=== PATIENT | female | born 1955 | race Caucasian/White ===

== ENCOUNTER 2023-11-18 10:46 | Outpatient (CLI) | payer MEDICARE, SELFPAY ==
--- NOTE | ~2023-11-18 | XR_ITS ---
Supine and upright views of the abdomen Clinical history: Bilateral groin pain Findings: Bowel gas pattern is nonspecific. No evidence for obstruction or free air. No abnormal mass lesion identified. There is a 1.2 cm rounded calcified lesion in the left upper quadrant, indetermin ate. Osseous structures are intact. Impression: 1.2 cm rounded, calcified lesion left upper quadrant, indeterminate. Reviewed, dictated and finalized at location . [employer] Impression: 1.2 cm rounded, calcified lesion left upper quadrant, indeterminate.
--- NOTE | ~2023-11-18 | US_ITS ---
EXAMINATION: US abdomen complete DATE: 11/18/2023 11:22 INDICATION: Abdominal pain TECHNIQUE: Multiple grayscale and Doppler ultrasound images of the abdomen were obtained. COMPARISON: None available FINDINGS: The head and body of the pancreas are normal. The pancreatic tail is obscured by bowel gas. The liver is normal with normal echogenicity and echotexture. No surface nodularity. Normal hepatope carlito flow in the main portal vein. The gallbladder is normal with no abnormal wall thickening, pericho lecystic fluid or stones. The normal common bile duct measures 3 mm. There was no sonographic Escobar sign. The visualized portions of the aorta and inferior vena cava are normal. The spleen measures 8.5 cm. A splenic calcification is noted. The right kidney measures 9.6 x 4.1 x 4 .8 cm. The left kidney measures 9.8 x 5.8 x 5.4 cm. The kidneys demonstrate normal parenchymal echoge nicity. No sonographic correlate is identified in the region of the patient's abdominal pain. There i s no hydronephrosis. IMPRESSION: 1. No sonographic correlate for the patient's symptoms. Reviewed, dictated and finalized at location B. [facility]
== END 2023-11-18 10:47 ==
LOC: MICIMG 10:48
PROVIDERS: PCP Nurse Practitioner; Visit Provider Nurse Practitioner
DX: R10.32 Left lower quadrant pain (principal)
CPT/HCPCS: 74018; 76700

== ENCOUNTER 2025-01-06 07:36 | Outpatient (CLI) | payer MEDICARE, SELFPAY ==
--- NOTE | ~2025-01-06 | US_ITS ---
EXAM: ABDOMEN ULTRASOUND HISTORY: CHRONIC GERD;NAUSEA;INTERMITTENT DIARRHEA;EPIGASTRIC PAIN COMPARISON: 11/18/2023 FINDINGS: LIVER: The liver is unremarkable in echogenicity and size measuring 13cm in longitudinal dimension. The portal vein is patent, demonstrating hepatopedal flow. GALLBLADDER: Layering sludge is identified within the gallbladder. No gallbladder wall thickening or pericholecystic fluid. BILE DUCTS: Common bile duct measures 2.7mm. PANCREAS: Limited evaluation of the pancreas secondary to overlying bowel gas SPLEEN: Redemonstration of a calcified focus within the peripheral body of the spleen, likely seconda ry to prior granulomatous disease. The remainder of the spleen is otherwise unremarkable in echogenicity. The spleen is not enlarged measuring 9.4cm in longitudinal dimension. RIGHT KIDNEY: 9.2 cm. In length. No discrete hydronephrosis or bulky renal calculi. Well-circumscribed rounded anechoic avascular focus within the right kidney measuring 6.7 x 9.4 x 6.5 mm, likely a cyst with limited evaluation on the current examination. Prominence of the right renal pelvis and proximal right ureter for which cross-sectional imaging is r ecommended. LEFT KIDNEY: 10.4cm in length. No hydronephrosis or renal calculi. IMPRESSION: Evaluation of the pancreas is limited by overlying bowel gas. Findings within the right kidney which may represent proximal hydroureter and hydronephrosis involvin g the right renal pelvis for which cross-sectional imaging (contrast enhanced CT examination of the a bdomen and pelvis) is recommended for further evaluation. Stable findings within the spleen suggesting prior granulomatous disease. Layering sludge within an otherwise unremarkable gallbladder. Reviewed, dictated and finalized at location A. IMPRESSION: Evaluation of the pancreas is limited by overlying bowel gas. Findings within the right kidney which may represent proximal hydroureter and h ydronephrosis involving the right renal pelvis for which cross-sectional imagin g (contrast enhanced CT examination of the abdomen and pelvis) is recommended f or further evaluation. Stable findings within the spleen suggesting prior granulomatous disease. Layering sludge within an otherwise unremarkable gallbladder.
--- OUTSIDE RECORDS SUMMARY | 2025-01-06 07:39 | XMS_ITS | Data Portability ---
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 Plan of Treatment Reminders Order Date Submit Date Provider Last Modified By Organization Details Last Modified Time Details Appointments None recorded. Lab lipid panel, serum 2020 021 [email or web address] Not available 12:39:07 CMP, serum or plasma 2020 021 [email or web address] 4 Not available 12:39:07 Referral None recorded. Procedures None recorded. Surgeries None recorded. Imaging electrocard iogram 2021 022 [email or web address] 21 [place], [address] [facility] [place], [address], [place], [address], 2 16:00:16 electrocard iogram 2020 021 [email or web address] 26 [place], [address] [facility] [place], [address], [place], [address], 11:57:41 electrocard iogram 2020 021 [email or web address] 6 [place], [address] [facility] [address], [place], [address], 1 14:37:21 stress echocardiog pj 2019 020 FRANK Nova, [address] [facility] [address], [address], [place], [address], 0 10:47:42 electrocard iogram 2019 020 [email or web address] Evelia Nova, [address] [facility] [address], [address], [place], [address], 0 17:09:09 Medication Orders atorvastati n 40 mg tablet 2020 021 FRANK [facility], [address] [place] [address], [address], 14:28:57 Patient TargetsNo targets recorded. Patient Instructions Encounter Date Encounter Id Patient Instructions Last Modified By Organization Details Last Modified Time 07/06/2020 [id number] All questions were answered. The importance of compliance with medications, testing and follow-up was stressed. Thank you for allowing me to be part of the health care team for this very pleasant patient. Please do not hesitate to call me directly with questions or concerns. amohmand Not available 07/06/2020 14:09:15 09/28/2020 [id number] All questions were answered. The importance of compliance with medications, testing and follow-up was stressed. Thank you for allowing me to be part of the health care team for this very pleasant patient. Please do not hesitate to call me directly with questions or concerns. amohmand Not available 09/28/2020 13:49:31 04/03/2021 [id number] All questions were answered. Importance of compliance (meds/testing/fol low-up) was stressed. Thank you for the kind consultation. Please call me directly with questions or concerns. amohmand Not available 04/03/2021 11:05:21 10/05/2021 [id number] All questions were answered. Importance of compliance (meds/testing/fol low-up) was stressed. Thank you for the kind consultation. Please call me directly with questions or concerns. amohmand Not available 10/03/2021 10:31:17 Reason for Referral None Reported. Results Created Date Observation Date Name Description Value Unit Range Abnormal Flag Note LastModifiedBy Organization Detail LastModifiedTime 06/06/2006/06/2020 SPECT , myoca rdial perfu nancy, multi ple 1. Normal pharma cologi luis stress MPI withou t eviden ce of prior infarc tion or induci ble ischem ia. 2. Small left ventri cular cavity size with hyperd ynamic systol ic functi on and an EF of 95%. 3. No region al wall motion abnorm alitie s. There are no ST segmen t change s noted with this chemic al protoc ol. [email or web address] [place] [address] [facility] [address], [place], [address], 06/13/2020 17:26:49 06/07/20 20 06/07/2020 US, echoc ardio gram 1. Hyperd ynamic LV with an EF of greate r than 70%. 2. No region al wall motion abnorm ality. 3. Normal diasto lic functi on. 4. Mild aortic , mitral and tricus pid regurg itatio n. 5. The RVSP is 39mmHg . 6. IVC is normal in calibe r. [email or web address] [place] [address] [facility] [address], [place], [address], 06/09/2020 16:05:09 06/07/20 20 06/07/2020 US, duple x, carot id arter y Mild plaque withou t any hemody namica lly signif icant stenos is. Antegr kailee left verteb ral flow.M ild plaque withou t any hemody namica lly signif icant stenos is. Antegr kailee right verteb ral flow. [email or web address] [place] [address] [facility] [address], [place], [address], 06/09/2020 16:05:09 06/16/20 20 06/03/2020 SPECT , myoca rdial perfu nancy, multi ple No observ ation record ed. BARCODE [place] [address] [facility] [address], [place], [address], 06/16/2020 17:08:43 07/06/20 [facility] rocar diogr am No observ ation record ed. amohmand Not Available 2019 16:47:15 07/19/2007/19/2020 stres s echoc ardio gram Normal stress echoca rdiogr am withou t echoca rdiogr aphic eviden ce of induci ble wall motion abnorm ality. Fair functi onal capaci ty. Inadeq uate beta-b lockad e with patien t reachi ng 92% of predic brett lisa l heart rate with modera te level of exerci se. Non-sp ecific upsloa ping 1mm depres anncy in the inferi or leads. [email or web address] [place] [address] [facility] [address], [place], [address], 07/19/2020 11:45:46 07/21/2007/18/2020 stres s echoc ardio gram No observ ation record ed. BARCODE [place] [address] [facility] [address], [place], [address], 07/21/2020 09:39:31 09/28/19 [facility] dio am No observ ation record ed. amohmand Not Available 2020 14:24:23 04/03/20 21 [facility] dio am No observ ation record ed. [email or web address] [place] [address] [facility] [address], [place], [address], 04/03/2021 11:40:30 04/03/20 21 [facility] rocar diogr am No observ ation record ed. amohmand Not Available 2020 11:54:08 10/05/19 [facility] No observ ation record ed. [email or web address] [place] [address] [facility] [address], [place], [address], 10/05/2021 11:36:37 10/05/19 22 lindsay lozano am No observ ation record ed. amohmand Not Available 2021 11:47:22 Result Notes None recorded. Problems Name Problem SNOMED Code Status Onset Date Resolution Date Notes Provider Name and Address Organization Details Recorded Time Mixed hyperlipid emia 092325367 Active Ana Maria Cadena null, [place] - [facility] 0 15:54:43 Chest pain 21158533 Active 2019 Margaux Castro null, [place] - [facility] 0 16:09:51 Carotid atheroscle rosis 571701684 Active 2019 Margaux Castro null, [place] - [facility] 0 16:09:58 Elevated blood-pres sure reading without diagnosis of hypertensi on 427156765 Active 2019 24 hour ambulatory BP normal. 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 LAD from right cusp, anterior, intrmural course. RCA normal. Margaux mazariegos, [place] - [facility] 0 11:04:01 Problem Notes None recorded. Procedures Surgical History Date Name Laterality Status Provider Name and Address Organization Details Recorded Time 0 Stress Echo (80007) completed Opal Pierce [place] - [facility] 07/19/2020 11:34:38 0 Carotid Duplex completed Opal Capellannings [place] - [facility] 06/07/2020 12:52:20 0 Lexiscan Nuclear completed Opal Pierce [place] - [facility] 06/07/2020 12:52:43 0 Echocardiogra m, complete (42993) completed Opal Capellannings [place] - [facility] 06/07/2020 12:53:08 Imaging Results Imaging Date Name Status LastModified by Organization Details LastModified Time 06/06/2020 SPECT, myocardial perfusion, multiple completed [email or web address] [place] [address] [facility] [address], [place], [address], 06/13/2020 17:26:49 06/07/2020 US, echocardiogram completed [email or web address] [place] [address] [facility] [address] [facility] [address], [place], [address], 06/09/2020 16:05:09 06/07/2020 US, duplex, carotid artery completed [email or web address] [place] [address] [facility] [address], [place], [address], 06/09/2020 16:05:09 06/03/2020 SPECT, myocardial perfusion, multiple completed BARCODE [place] [address] [facility] [address], [place], [address], 06/16/2020 17:08:43 07/06/2020 electrocardiogram completed Informa tion not available 07/06/2020 16:47:15 07/19/2020 stress echocardiogram completed [email or web address] [place] [address] [facility] [address], [place], [address], 07/19/2020 11:45:46 07/18/2020 stress echocardiogram completed BARCODE [place] [address] [facility] [address], [place], [address], 07/21/2020 09:39:31 09/28/2020 electrocardiogram completed Informa tion not available 09/28/2020 14:24:23 04/03/2021 electrocardiogram completed [email or web address] [place] [address] [facility] [place], [place], [address], 04/03/2021 11:40:30 04/03/2021 electrocardiogram completed Informa tion not available 04/03/2021 11:54:08 10/05/2021 electrocardiogram completed [email or web address] [place] [address] [facility] [address], [place], [address], 10/05/2021 11:36:37 10/05/2021 electrocardiogram completed Informa tion not available 10/05/2021 11:47:22 Procedure Notes None recorded. Medical Equipment None Reported. Allergies Allergen ID Allergen Name Allergen Category Reaction Reaction Severity Criticality Documentation Date Start Date Code Code System Note Provider Name and Address Organization Details Recorded Time 311956 azithromy rudy medicatio n Not available Not available Not available 05/18/2020 72083 RxNorm Not Available Not Available Not Available Medications Name Sig Start Date Stop Date Status Note LastModified by Organization Details LastModified Time atorvasta tin 40 mg tablet Take 1 tablet every day by oral route. active Not Available Not Available No t Available ivermecti n 3 mg tablet 04/03 completed Not Available Not Available Not Available trazodone 50 mg tablet Take 1 tablet every day by oral route. active Not Available Not Available No t Available azithromy rudy 250 mg tablet 04/03 completed Not Available Not Available Not Available prednison e 20 mg tablet 04/03 completed Not Available Not Available Not Available simvastat in 40 mg tablet Take 1 tablet every day by oral route. 09/28 completed Changed to atorvast atin. Not Available Not Available Not Available triamcino lone acetonide 0.1 % dental paste 04/03 completed Not Available Not Available Not Available nitroglyc aminah 0.4 mg sublingua l tablet Place 1 tablet by sublingu al route. 2019 active Not Available Not Available Not Avai lable omeprazol e 20 mg capsule,d elayed release Take 1 capsule every day by oral route. active Not Available Not Available No t Available hydroxych loroquine 200 mg tablet 04/03 completed Not Available Not Available Not Available estradiol 0.01% (0.1 mg/gram) vaginal cream 04/03 completed Not Available Not Available Not Available fluticaso ne propionat e 50 mcg/actua tion nasal spray,ayde pension 09/28 completed Not Available Not Available Not Available amoxicill in 875 mg-potass ium clavulana te 125 mg tablet 05/18 completed Not Available Not Available Not Available metoprolo l tartrate 25 mg tablet Take 1 tablet twice a day by oral route. 2020 active Not Available Not Available Not Avai lable levocetir izine 5 mg tablet Take 1 tablet every day by oral route. active Not Available Not Available No t Available Lexiscan 0.4 mg/5 mL intraveno us syringe Administ ered during diagnost ic visit 06/22 completed Not Available Not Available Not Available kit preparati on of Tc 99m-sesta mibi combo no.1 IV solution Administ ered during diagnost ic visit 06/22 completed Not Available Not Available Not Available Myoview Kit 1.38 mg intraveno us solution Administ ered during diagnost ic visit 06/22 completed Not Available Not Available Not Available Vitals Date Recorded Body height Body mass index (BMI) Body weight Heart rate Systolic blood pressure Diastolic blood pressure Provider Name and Address Organization Details Last Updated DateTime 0 165.1 cm 22.5 kg/m2 37636.9 7 g 77 /min 109 mm[Hg] 85 mm[Hg] Tata Garlandegos [place] - [facility] 0 16:42:24 Date Recorded Body height Body mass index (BMI) Body weight Heart rate Systolic blood pressure Diastolic blood pressure Provider Name and Address Organization Details Last Updated DateTime 1 165.1 cm 23.1 kg/m2 68296.3 4 g 59 /min 123 mm[Hg] 88 mm[Hg] Ana Maria Cadena [place] - [facility] 1 14:20:17 Date Recorded Body height Body mass index (BMI) Body weight Heart rate Systolic blood pressure Diastolic blood pressure Provider Name and Address Organization Details Last Updated DateTime 1 165.1 cm 24.5 kg/m2 39072.0 8 g 58 /min 122 mm[Hg] 83 mm[Hg] Ana Maria Cadena [place] - [facility] 1 11:41:07 Date Recorded Body height Body mass index (BMI) Body weight Heart rate Systolic blood pressure Diastolic blood pressure Provider Name and Address Organization Details Last Updated DateTime 2 165.1 cm 23.6 kg/m2 85784.1 2 g 51 /min 117 mm[Hg] 81 mm[Hg] Ana Maria Cadean [place] - [facility] 2 11:39:30 Social History Question Answer Notes LastModified by Organizat ion Details LastModified Time Tobacco Smoking Status Never Smoker Ana Maria Cadena null, [place] - [facility] 05/18/2020 15:55:01 What Was The Date Of Your Most Recent Tobacco Screening? 09/28/2020 [email or web address] Information not available 12/07/2020 Sex: Unknown Functional Status None recorded. Mental Status None recorded. Family History Relationship Description Onset Age of this Age Resolved Age Notes LastModified by Organization Details LastModified Time Brother Coronary artery bypass graft 70 [email or web address] Not available 15:54:54 Medical History No medical history recorded. Gynecological HistoryNo gynecological history recorded. Obstetrics History GPAL:G 0 P 0 0 0 0 Past Encounters Encounter ID Performer Location Encounter Start Date Encounter Closed Date Diagnosis/Indication Diagnosis SNOMED-CT Code Diagnosis ICD10 Code Diagnosis Note [id number] Margaux [place] [address] [facility],[address] [employer] [place] [address] 05/18/2020 15:37:02 05/18/2020 16:40:39 Chest pain 78211618 R07.9 Atypical symptoms but going on for a while. Multiple risk factors. Will further evaluate with echo and stress MPI. Keep an eye on BP.- Hyperlipid emia.- Age >65- Family history of CAD (not premature) .- Coronary calcium (score of 32 (in the LAD) earlier this year.- Carotid atheroscle rosis (see below. Give NTG prescripti on. Carotid atherosclerosis 988890012 I65.29 Velocity of 128 noted in the right ICA in 2016. Will get carotid Doppler to better assess severity/e xtent of disease. Continue statin. Mixed hyperlipidemia 267 184859 E78.2 On statin. Get latest results from PCP. Elevated blood-pressure reading without diagnosis of hypertension 057554677 R03.0 BP checked multiple times in the office. Persistent ly above 140/90. Says she is anxious and the mask makes it worse. Will get a 24 hour ambulator BP monitoring on her to rule out white coat phenomenon . [id number] Opal Nova [address] [facility],[address] [place] [address] 06/03/2020 09:52:40 06/03/2020 14:21:26 Carotid atherosclerosis 730030248 I65.29 [id number] Opal Nova [address] [facility] [address] [place] [address] 06/03/2020 09:53:05 06/03/2020 14:21:41 Chest pain 86212165 R07.9 [id number] Opal Nova [address] [facility] [place] [address] 06/03/2020 11:29:43 06/08/2020 09:40:05 Chest pain 92873365 R07.9 Atypical symptoms but going on for a while. Multiple risk factors. Will further evaluate with echo and stress MPI. Keep an eye on BP.- Hyperlipid emia.- Age >65- Family history of CAD (not premature) .- Coronary calcium (score of 32 (in the LAD) earlier this year.- Carotid atheroscle rosis (see below. Give NTG prescripti on. 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 CT angiogram has been requested. Once she has adequately beta blockade, a treadmill stress test can be done to assess for inducible ischemia and symptoms, and for appropriat e heart rate reduction with beta-block ers. Elevated blood-pressure reading without diagnosis of hypertension 014358345 R03.0 BP checked multiple times in the office. Persistent ly above 140/90. Says she is anxious and the mask makes it worse. Will get a 24 hour ambulator BP monitoring on her to rule out white coat phenomenon . Carotid atherosclerosis 617798134 I65.29 Mixed hyperlipidemia 267 654425 E78.2 On statin. Get latest results from PCP. Chest pain 36498830 R07. 9 Atypical symptoms but going on for a while. Multiple risk factors. Will further evaluate with echo and stress MPI. Keep an eye on BP.- Hyperlipid emia.- Age >65- Family history of CAD (not premature) .- Coronary calcium (score of 32 (in the LAD) earlier this year.- Carotid atheroscle rosis (see below. Give NTG prescripti on. [id number] Opal Nova [address] [facility],[address] [place] [address] 07/18/2020 11:53:51 07/18/2020 12:49:31 Chest pain 42283709 R07.9 Atypical symptoms but going on for a while. Multiple risk factors. Will further evaluate with echo and stress MPI. Keep an eye on BP.- Hyperlipid emia.- Age >65- Family history of CAD (not premature) .- Coronary calcium (score of 32 (in the LAD) earlier this year.- Carotid atheroscle rosis (see below. Give NTG prescripti on. 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 Negative stress echo. Continue BB and medical management . LDL not at goal. Has plaque in the LCX. Will change simvastati n to atorvastat in. Reassess in 6-8 weeks. Elevated blood-pressure reading without diagnosis of hypertension 285438691 R03.0 Controlled . Carotid atherosclerosis 429316382 I65.29 Mild plaque without any hemodynami cameron significan t stenosis. Antegrade vertebral flow. Continue medical management and risk factor modificati on. Mixed hyperlipidemia 267 434043 E78.2 LDL is above 100. Goal is less than 70. Change to atorvastat in. [id number] Margaux Nova [address] [facility],[address] [place] [address] 04/03/2021 11:28:26 04/03/2021 11:57:41 Anomalous origin of coronary artery 34227969 Q24.5 Asymptomat ic. Normal stress test. Continue BB therapy. Elevated blood-pressure reading without diagnosis of hypertension 131335005 R03.0 BP is in the normal range. Carotid atherosclerosis 770724945 I65.29 Mild disease. Continue with statin. Mixed hyperlipidemia 267 252126 E78.2 Says recent labs with Dr. Marino showed improved numbers. Will attempt to get reports. [id number] Margaux Nova [address] [place] [address] 10/05/2021 11:28:59 10/05/2021 12:15:50 Anomalous origin of coronary artery 05179555 Q24.5 Asymptomat ic for the most part. Negative stress testing in the past. RTC in 1 years. Elevated blood-pressure reading without diagnosis of hypertension 568053255 R03.0 BP is controlled and at goal. Carotid atherosclerosis 735053744 I65.29 Anomalous coronaries . Asymptomat ic. Mixed hyperlipidemia 267 462822 E78.2 On statin. LDL is OK, possibly a bit higher now as she is doing the keto diet. Health Concerns Section Related Observation LastModified by Organization Detai ls LastModified Time None Recorded Concern Status LastModified by Organization Details LastModified Time None Recorded Advance Directives Directive None Recorded Payers Encounter Date Sequence Insurance Name Policy Number Policy Mcnamara Covered Member ID Mcnamara Member ID Guarantor Name 07/06/2020 1 [place] [employer] Jeanette L Henrik [id number] Jeanette Viola 07/06/2020 2 [employer] - PLAN F (MEDICARE SUPPLEMENT) Jeanette L Viola [id number] Jeanette Henrik 07/18/2020 1 [place] [employer] Jeanette L Henrik [id number] Jeanette Viola 07/18/2020 2 [employer] - PLAN F (MEDICARE SUPPLEMENT) Jeanette L Viola [id number] Jeanette Viola 09/28/2020 1 [place] [employer] Jeanette L Viola [id number] Jeanette Henrik 09/28/2020 2 [employer] - PLAN F (MEDICARE SUPPLEMENT) Jeanette L Henrik [id number] Jeanette Viola 04/03/2021 1 [place] [employer] Jeanette L Viola [id number] Jeanette Henrik 04/03/2021 2 [employer] - PLAN F (MEDICARE SUPPLEMENT) Jeanette Chester [id number] Jeanette Chester 10/05/2021 1 [place] [employer] Jeanette Chester [id number] Jeanette Chester 10/05/2021 2 [facility] [place] Jeanette Chester [id number] Jeanette Chester Notes Date Note Type Note Provider Name and Address Organization Details Recorded Time 07/06/2020 text/html Jeanette is here fo r follow-up on her recent coronary angiography. She had undergone the procedure due to persistent chest pain despite normal pharmacological stress MPI. 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 She also had an anomalous takeoff of the LAD, as a separate ostium, from the right coronary cusp with what appeared to be an anterior and leftward course, possibly traveling between the great arteries with the possibility of intramural course and bridging of the proximal segment. She was started on a beta-jaida and set up for a cardiac CT angiogram for further delineation of her coronary anatomy. EKG today shows NSR at 77. Negative precordial T-waves. She is doing well. No syncope, presyncope. CP is not related to activity, can happen laying down. Margaux mazariegos, [place] - [facility] 07/06/2020 17:02:07 09/28/2020 text/html Jeanette is here fo r follow-up on her recent coronary angiography. She had undergone the procedure due to persistent chest pain despite normal pharmacological stress MPI. 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 She also had an anomalous takeoff of the LAD, as a separate ostium, from the right coronary cusp with what appeared to be an anterior and leftward course, possibly traveling between the great arteries with the possibility of intramural course and bridging of the proximal segment. CTA confirmed these findings. LAD was diminutive. Stress echo in June 2020 was negative for inducible ischemia wall motion abnormalities. She feels good. EKG shows Sinus bradycardia at 59. Negative precordial T-waves. LDL is 104, HDL 62, TG 107. No CP or SOB. No syncope or presyncope. No acute concerns. Outside labs reviewd. Normal renal function. Normal lyets. Normal AST/ALT. Home Bp log reviewed. Liza readings at goal in the 110-120 systolic range. Diastolic in the 70s. HR in the 50-70s. Margaux mazariegos, [place] - [facility] 09/28/2020 14:29:45 04/03/2021 text/html Jeanette is here fo r routine 6 month follow-up. 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 Blood pressure was controlled at that time and she was switched over to atorvastatin for better LDL control. EKG shows Sinus bradycardia at 58. Possible LAE. Dick CP. Her upper left back itches all the time and can get a deep pain there that can last a day, and they goes away. Very sporadic. No triggers. No breathing issues. Margaux mazariegos, [place] - [facility] 04/03/2021 11:56:17 10/05/2021 text/html Jeanette returns fo r a 6 month f/u. 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 LAD with a long proximal likely intramural course. Normal stress echo 06/2020. Hyperdynamic LV wtih EF of 70%, normal wall motion 05/2020. Normal pharmacologic MPI 05/2020. EKG shows Sinus bradycardia at 51. Negative precordial T-waves. Bloodwork in March shows normal lytes, renal function. LDL was 95, HDL 68, TG 103. She feels good. Every once in a while, gets CP randomly, lasts for a few minutes then goes away. Not more than 2-3 times a month. No breathing issues. Boosted against COVID. Saw Dr. Jose Castro recently for an increasing Alb/Globulin ration. No active renal issues. Margaux mazariegos, [place] - [facility] 10/05/2021 11:54:49 OBGyn Episode No OBEpisode recorded.
--- OUTSIDE RECORDS SUMMARY | 2025-01-06 07:39 | XMS_ITS | Data Portability ---
Author Organization [place] [facility] [place]_ Address [address] [address] [address] [place] [address] Assessment Encounter Date Assessment Date Assessment LastModified by Organization Details LastModified Time 08/08/2021 08/08/2021 We talked 30 minutes Stiff soled shoes Medrol then mobic No barefeet Next step shots, inserts (custom) zisidoro Not available 08/08/2021 14:06:26 08/29/2021 08/29/2021 L3000 molded and cutp ut met pads made sent to [facility] zisidoro Not available 08/30/2021 08:48:18 Plan of Treatment Reminders Order Date Submit Date Provider Last Modified By Organization Details Last Modified Time Details Appointments None record ed. Lab None record ed. Referral None record ed. Procedures None record ed. Surgeries None record ed. Imaging None record ed. Medication Orders None record ed. Patient TargetsNo targets recorded. Patient InstructionsNo instructions recorded. Reason for Referral None Reported. Medical Equipment None Reported. Medications Name Sig Start Date Stop Date Status Note LastModified by Organization Details LastModified Time atorvastatin 40 mg tablet active Not Available Not Available No t Available ivermectin 3 mg tablet active Not Available Not Available Not Available trazodone 50 mg tablet active Not Available Not Available Not Available azithromycin 250 mg tablet active Not Available Not Available No t Available meloxicam 15 mg tablet TAKE ONE TABLET BY MOUTH DAILY 2020 active Not Available Not Available Not Avai lable prednisone 20 mg tablet active Not Available Not Available Not Available simvastatin 40 mg tablet active Not Available Not Available No t Available triamcinolone acetonide 0.1 % dental paste active Not Available Not Available Not Available hydroxychloroqui ne 200 mg tablet active Not Available Not Avail able Not Available estradiol 0.01% (0.1 mg/gram) vaginal cream active Not Available Not Availabl e Not Available methylprednisolo ne 4 mg tablets in a dose pack Take 1 dose pk by oral route. active Not Available Not Available No t Available metoprolol tartrate 25 mg tablet active Not Available Not Available Not Available levocetirizine 5 mg tablet active Not Available Not Available No t Available Vitals None Recorded Social History None recorded. Functional Status None recorded. Mental Status None recorded. Family History Nothing Reported. Medical History No medical history recorded. Gynecological HistoryNo gynecological history recorded. Obstetrics History GPAL:G 0 P 0 0 0 0 Past Encounters Encounter ID Performer Location Encounter Start Date Encounter Closed Date Diagnosis/Indication Diagnosis SNOMED-CT Code Diagnosis ICD10 Code Diagnosis Note [id number] Ash MARCO ANTONIO ThorpeMagan Guevara [address] [place] [id number] 08/08/2021 12:38:49 08/08/2021 14:01:03 Bursitis of foot region 449097405 M77.50 Congenital pes cavus 205 699833 Q66.70 Acquired h allux limitus of left great toe 3770578885 151922 M20.5X2 Acquired h allux limitus of right great toe 3374011723 534588 M20.5X1 [id number] MARCO ANTONIO ManningMagan Guevara [address] [place] [id number] 08/29/2021 12:10:15 08/29/2021 13:03:57 Metatarsalgia 89318476 M77.41 Acquired l eft hallux valgus 5436566591 05223 M20.12 Acquired r ight hallux valgus 7232300217 07606 M20.11 Health Concerns Section Related Observation LastModified by Organization Detai ls LastModified Time None Recorded Concern Status LastModified by Organization Details LastModified Time None Recorded Advance Directives Directive None Recorded Payers Encounter Date Sequence Insurance Name Policy Number Policy Mcnamara Covered Member ID Mcnamara Member ID Guarantor Name 08/08/2021 2 [employer] INSURANCE [employer] (MEDICARE SUPPLEMENT) Jeanette Chester [id number] Jeanette Chester 08/08/2021 1 MEDICARE [place]: [employer] Jeanette Chester [id number] Jeanette Chester 08/29/2021 2 [employer] (MEDICARE SUPPLEMENT) Jeanette Chester [id number] Jeanette Chester 08/29/2021 1 MEDIC[place] [employer] Jeanette Chester [id number] Jeanette Chester Notes Date Note Type Note Provider Name and Address Organization Details Recorded Time 08/08/2021 text/html Pain in right foot more than left, lesser toes, dorsal midfoot pain with being in tighter shoes even tennis shoes due to the bump, bump been there forever but pain also lesser mets r>L nothing seems to help Ash Thorpe DPM [address], [place], [address], [facility] [facility] 08/08/2021 14:06:50 08/29/2021 text/html Pain in right foot more than left, lesser toes, dorsal midfoot pain with being in tighter shoes even tennis shoes due to the bump, bump been there forever but pain also lesser mets r>L nothing seems to help Ash Thorpe DPM [address], [place], [address], [facility] [employer] [facility] 08/30/2021 08:48:38 OBGyn Episode No OBEpisode recorded.
--- OUTSIDE RECORDS SUMMARY | 2025-01-06 07:40 | XMS_ITS | Clinical Summary ---
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 Name Role Phone Michelle Agustin MD Primary Care Provider + Allergies Active Allergy Reactions Criticality Noted Date Comments Erythromycin Base Other (See Comments) 01/30/20 17 Stomach pain Encounters Date Type Department Care Team Description 12/11/2024 Transcribe Orders [facility] [address] [place], [place] [id number] Crystal Black PA Chronic GERD (Primary Dx); Intermittent diarrhea; Nausea; History of colonic polyps; Epigastric pain; Right shoulder pain, unspecified chronicity from Last 3 Months Social History Tobacco Use Types Packs/Day Years Used Date Smoking Tobacco: Never Assessed Comments Unknown Sex and Gender Information Value Date Recorded Sex Assigned at Not on file 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 Gender Identity Not on file Sexual Orientation Not on file Last Filed Vital Signs Vital Sign Reading Time Taken Comments Blood Pressure 122/82 12/09/2014 10:48 AM CDT Pulse 68 12/09/2014 10:48 AM CDT Temperature 36.7 C (98.1 F) 12/09/2014 10:48 AM CDT Respiratory Rate - - Oxygen Saturation - - Inhaled Oxygen Concentration - - Weight 54.4 kg (120 lb) 12/09/2014 10:48 AM CDT Height 165.1 cm (5' 5 ) 12/09/2014 10:48 AM CDT Body Mass Index 19.97 12/09/2014 10:48 AM CDT Plan of Treatment Upcoming Encounters Date Type Department Care Team (Late st Contact Info) Description 01/25/2025 9:00 AM CDT Appointment [facility] - [address] [place] [address] Health Maintenance Due Date Last Done Comments Advance Care Planning 1955 Breast Cancer Screening (Bilateral) 1955 Colorectal Cancer Screening: CT Colonography 1955 Colorectal Cancer Screening: Colonoscopy 1955 Colorectal Cancer Screening: FIT-DNA 1955 Colorectal Cancer Screening: Fecal Occult Blood 1953 Colorectal Cancer Screening: Sigmoidoscopy 1953 Colorectal Cancer Screening 1955 Hepatitis C Screening Adults 1955 Osteoporosis Screening 1953 Mood Screen 1965 Tetanus Booster Vaccines 1972 Lipid Screening 1973 Pneumococcal Vaccine (50+) ( 1 of 1 - PCV) 2003 Zoster Vaccine (1 of 2) 2003 COVID-19 Vaccine (4 - 2023-2 5 season) 2024 09/01/2021, 02/13/2021, 01/23/2021 Seasonal Influenza Vaccine (#1) 2024 07/24/2022, 07/05/2021 RSV (Adults 60+) (1 - 1-dose 75+ series) 2028 HPV Vaccines Aged Out No longer eligi ble based on patient's age to complete this topic Hepatitis A Vaccines Aged Out No long er eligible based on patient's age to complete this topic Hepatitis B Vaccines Aged Out No long er eligible based on patient's age to complete this topic Hib Vaccines Aged Out No longer eligi ble based on patient's age to complete this topic Meningococcal (ACWY) Vaccines Aged Out No longer eligible based on patient's age to complete this topic Meningococcal B Vaccine Aged Out No l onger eligible based on patient's age to complete this topic Pediatric RSV Vaccines Aged Out No lo nger eligible based on patient's age to complete this topic Polio Vaccines Aged Out No longer darshan gible based on patient's age to complete this topic Insurance MEDICARE [facility] Member Subscriber Plan / Payer (Ef fective 2022-Present) Name:Henrik Jeanette Relation to Subscriber:Self Name:Henrik Jeanette Payer ID:PAPER Group ID:[id number] Type:Commercial Address: [id number] [facility] [employer] Care Teams Hand Crocheter Relationship Specialty Start Date End Date Michelle Agustin MD PCP - General Internal Medicine 12/19/20
== END 2025-01-06 07:37 | disposition home or self-care (01) ==
DX: K21.9 Gastro-esophageal reflux disease without esophagitis (principal); K82.4 Cholesterolosis of gallbladder; N28.9 Disorder of kidney and ureter, unspecified; M25.511 Pain in right shoulder; Z86.0100 Personal history of colon polyps, unspecified
CPT/HCPCS: 76700